=== PATIENT | male | born 1965 ===

== ENCOUNTER 2017-05-15 09:46 | Day surgery (SDC) | payer OTHER ==
[~2017-05-15] VITALS: Ht 160 cm; Wt 92.1 kg
[~2017-05-15 09:46] MED LIST: ALCLOMETASONE D
== END 2017-05-15 11:41 | disposition home or self-care (01) ==
LOC: ORSCSDS 09:46
PROVIDERS: Internal Medicine Gastroenterology
PROC: 0DBH8ZX Excision of Cecum, Via Natural or Artificial Opening Endoscopic, Diagnostic (ICD-10-PCS; principal; 2017-05-15 11:15)
DX: Z12.11 Encounter for screening for malignant neoplasm of colon (principal); D12.0 Benign neoplasm of cecum; K64.8 Other hemorrhoids; E66.9 Obesity, unspecified; Z68.36 Body mass index [BMI] 36.0-36.9, adult
CPT/HCPCS: 88305; J7120